=== PATIENT | male | born 1995 | race African-American/Black ===

== ENCOUNTER 2024-10-21 22:48 | Emergency (ER) | payer OTHER ==
[~2024-10-21] VITALS: Ht 172.7 cm; Wt 77.3 kg
[2024-10-21 22:59] VITALS: BP 116/66; PULSE 88; RESP 20; TEMP 98.2; O2SAT 97
[2024-10-21] MEDS ORDERED: AMOX-457 PO (23:38)
[2024-10-21] MEDS: ACETAMINOPHEN 325 MG TABLET PO ONE (23:49)
[2024-10-21] MEDS: PERTUSS(ACELL),DIPH,TET/PF 0.5 ML SYRINGE [ADULT] IM. ONE (23:50)
== END 2024-10-22 00:07 | disposition home or self-care (01) ==
LOC: EMS 22:48
DX: S50.811A Abrasion of right forearm, initial encounter (principal); W54.0XXA Bitten by dog, initial encounter; Y93.89 Activity, other specified; Y92.89 Other specified places as the place of occurrence of the external cause; Y99.8 Other external cause status
CPT/HCPCS: 90471; 90715; 99283